=== PATIENT | male | born 2000 | race Caucasian/White ===

== ENCOUNTER 2023-12-14 18:44 | Emergency (ER) | payer BC, SELFPAY ==
[2023-12-14 18:53] VITALS: BP 134/74
[2023-12-14 20:29] VITALS: BP 116/81
[2023-12-14 21:00] VITALS: BP 125/73
--- NOTE | 2023-12-14 21:04 | EDRN ---
Pt has had constant pressure in the center of his chest since associated with sob. No recent long car rides/airplane travel, abd pain, swelling, leg pain, n/v, dizziness, weakness. Pt was seen at [facility] for same complaint and discharged
with nonspecific chest pain diagnosis. Pt says he was not told to take motrin/tylenol. Pt came in tonight because pressure has not gone away and he would like a second opinion. Pt has not taken anything at home for pain.
[2023-12-14 21:07] LABS: % Basophils 0.6 % (0-2); % Eosinophils 2.1 % (0-6); % Immature Granulocytes 0.2 % (0-0.5); % Lymphocytes 38.5 % (20.5-51.1); % Monocytes 7.8 % (1.7-9.3); % Neutrophils 50.8 % (42.2-75.2); Absolute Eosinophils 0.1 10^3/uL (0-0.7); Absolute Monocytes 0.4 10^3/uL (0.1-0.6); Absolute Neutrophils 2.7 10^3/uL (1.4-6.5); Hematocrit 39.7 % (39.0-52.0); Mean Corp Hgb Conc. 35.3 g/dL (33.0-37.0); Mean Corpuscular Hgb 30.1 pg (27.0-31.0); Mean Corpuscular Volume 85.4 fL (80.0-94.0); Mean Platelet Volume 9.4 fL (7.4-10.4); Nucleated Red Blood Cells % 0 % (-); Platelet Count 234 10^3/uL (130-400); Red Blood Cell Count 4.65 10^6/uL (4.70-6.10); Red Cell Dist. Width 13.2 % (11.5-14.5); White Blood Cell Count 5.3 10^3/uL (4.8-10.8)
[2023-12-14 21:22] LABS: ALT (SGPT) 27 U/L (0-50); AST (SGOT) 23 U/L (17-59); Alkaline Phosphatase 36 U/L (38-126); Blood Urea Nitrogen 25 mg/dl (9-20); Calcium 9.9 mg/dl (8.4-10.2); Carbon Dioxide 27 mmol/L (22-30); Chloride 102 mmol/L (98-107); Estimated Creatinine Clearance 113 ml/min; Glucose 93 mg/dl (70-99); Potassium 4.6 mmol/L (3.5-5.1); Sodium 142 mmol/L (135-145); Total Bilirubin 0.3 mg/dl (0.2-1.3); Total Protein 7.6 g/dl (6.3-8.2); eGFR > 60.00
--- NOTE | 2023-12-14 21:27 | ED.GENMED ---
History of Present Illness
General
Chief Complaint: Chest Pain
Source: patient
Time Seen by Provider: 12/14/23 20:27
History of Present Illness
History of Present Illness:
23-year-old male with no significant past medical history presents to the emergency department for evaluation of chest discomfort that started this past rather abruptly while he was driving, felt as if his heart were racing and as if it
were skipping beats. Patient went to [facility] and he reports that he had labs, chest x-ray and an EKG performed and was ultimately discharged home. Patient states that he did not understand some of the workup and was still
having some of the discomfort today so decided to come to the ER here for second opinion and further evaluation. Patient denies any fevers, recent illnesses, cough, exertional dyspnea, orthopnea, abdominal pain, nausea, vomiting. Family history
was noncontributory. Social history was noted for no cigarettes or tobacco/alcohol use/substance abuse. Patient does note he feels the pain more along the right side and is a little bit worse with deep inspiration.
Past History
Past History
ED Past Medical History: None
ED Past Surgical History: None
Social History
Tobacco: Non-smoker
Alcohol: None
Drug: None
Personal:
Living: with family
Employment: Employed
Review of Systems
Review of Systems
All Other Systems: ROS reviewed and negative except as documented in HPI and ROS
Phy Exam
Physical Exam
Physical Exam:
GENERAL: Alert , in no apparent distress
EYE: clear conjunctiva b/l
HEAD: NCAT
ENT: mmm.
CARDIAC: Regular rate and rhythm .
LUNGS: Clear breath sounds bilaterally, no acute respiratory distress, no wheezes/rales/rhonchi
ABDOMEN: Soft, without focal tenderness, no r/g, no cvat
NEUROLOGICAL: Alert and oriented
SKIN: Warm and dry, skin intact.
MUSCULOSKELETAL: No edema, well perfused.
PSYCH: Normal and appropriate interaction.
Scores
Heart Failure Risk
Heart Failure Risk Score: Not Applicable
Heart Score for Chest Pain Patients
STEMI patient?: No
History: Slightly or Non-Suspicious
ECG: Normal
Age: </= 45 years
Risk Factors: No Risk Factors
Troponin: </= Normal Limit
Heart Score for Chest Pain Patients: 0
Heart Score Risk: 2.5% MACE over next 6 weeks
Withdrawal Assessment of Alcohol
Withdrawal Assessment Completed?: Not applicable
Course
Orders/Labs/Results
Orders:
Orders
12/14/23 18:45
EKG [Electrocardiogram (*1)] Urgent
Reason for Study: Chest Pain
EKG- Treatment ONCE
12/14/23 20:55
Complete Blood Count/With Diff Urgent
Comprehensive Metabolic Panel Urgent
Troponin I Urgent
Abnormal Lab Results
12/14/23
20:55
RBC 4.65 L 10^6/uL
(4.70-6.10)
BUN 25 H mg/dl
(9-20)
Alkaline Phosphatase 36 L U/L
(38-126)
12/14/23 20:55
12/14/23 20:55
Vital Signs
Initial and Last Documented VS:
Initial Vital Signs
Temp Pulse Resp BP Pulse Ox
98.5 F 64 18 134/74 99
12/14/23 18:53 12/14/23 18:53 12/14/23 18:53 12/14/23 18:53 12/14/23 18:53
Last Documented Vital Signs
Temp Pulse Resp BP Pulse Ox
98.5 F 55 14 125/73 100
12/14/23 18:53 12/14/23 21:00 12/14/23 21:00 12/14/23 21:00 12/14/23 21:00
MDM/Problems Addressed
Differential Diagnosis Includes:
pleurisy, costochondritis, PE, ACS thought to be much less likely given age and lack of risk factors
MDM/Problems Addressed:
23-year-old male presenting to the emergency department for evaluation of right-sided chest pain that began on , had workup done at [facility] which was reportedly unremarkable however patient does have his paperwork and blood work with him
which show that on an initial troponin this was mildly elevated, had subsequent to sets of troponins done which were both normal. Patient's EKG there was also nonischemic and had negative imaging and a negative D-dimer. Based off patient's
symptoms I suspect pleurisy/costochondritis to be the most likely diagnosis. Will repeat labs to ensure negative troponin. Will provide with information for cardiology for patient to follow-up at his choosing. Anticipate discharge home following
remaining workup.
*Pulse Oximetry
Patient hypoxic: no
*EKG
Interpreted by ED Provider?: Yes
Heart Rate: 57
Rate: bradycardiac
Rhythm: sinus
[place]: normal axis
Ischemia: no ischemia
*Ball Fringe Machine Operator Interpretation
Rate: bradycardiac
Rhythm: sinus
*Critical Care Note
Total Time (30-74mins, 75-104mins- exclusive of procedures): Not Applicable
Patient Management
Social determinants of health affecting care: Living situation and Strong social support
Escalation/DeEscalation of care consider admission/obs:
Labs unremarkable. Patient feels comfortable being discharged home. Aware of return precautions. Information for cardiology was provided.
ED Attending Note
-
Portions of this chart may have been created with voice recognition software.� Occasional wrong word or��sound alike� substitutions may have occurred due to the inherent limitations of voice recognition software.
Discharge Plan
Departure
Patient Disposition: Home (Routine Discharge)
Date of Disposition: 12/14/23
Time of Disposition: 21:33
Patient with high blood pressure during this ER visit?: No
Discharge Problem:
Chest pain
Instructions: Chest Pain That Is Not Caused by the Heart (DC)
Prescriptions:
No Action
No Current Medications
0
Referrals:
Luc Flores DO [Family Provider] -
Willie Ahumada MD [Active] -
(Cardiology - Call for appointment as needed
)
Interventions
Interventions:
*Risk Screen - Suicide Last Done: 12/14/23 18:53
*General Assessment Last Done: 12/14/23 18:53
*Neglect/Abuse Screening Last Done: 12/14/23 18:53
ED- Fall Risk Assessment Last Done: 12/14/23 21:02
*ED COVID-19 Vaccine History Last Done: 12/14/23 18:53
ED- Cardiac Assessment Last Done: 12/14/23 21:02
Discharge Date and Time
Print Language: TAJIK
[2023-12-14 21:32] LABS: Troponin I < 0.012 ng/ml
== END 2023-12-14 21:45 | disposition home or self-care (01) ==
LOC: EMR 18:44
PROVIDERS: Physician Assistant Medical; EMERGENCY PHYSICIAN Student in an Organized Health Care Education/Training Program; FAMILY PHYSICIAN Family Medicine Sports Medicine
DX: R07.89 Other chest pain (principal)
CPT/HCPCS: 99283; 80053; 84484; 85025; 93005

== ENCOUNTER → 2023-12-29 09:54 | Outpatient (REF) | payer BC, SELFPAY | LOC: RCS 09:54 | PROVIDERS: ATTENDING PHYSICIAN Family Medicine Sports Medicine | DX: R06.02 Shortness of breath (principal); R07.9 Chest pain, unspecified | CPT/HCPCS: 93306 ==

== ENCOUNTER 2024-01-01 12:50 | Emergency (ER) | payer BC, SELFPAY ==
[2024-01-01 12:52] VITALS: BP 136/85
[2024-01-01 13:08] LABS: % Basophils 0.7 % (0-2); % Eosinophils 0.7 % (0-6); % Immature Granulocytes 0.2 % (0-0.5); % Lymphocytes 25.3 % (20.5-51.1); % Monocytes 6.4 % (1.7-9.3); % Neutrophils 66.7 % (42.2-75.2); Absolute Monocytes 0.3 10^3/uL (0.1-0.6); Absolute Neutrophils 2.7 10^3/uL (1.4-6.5); Hematocrit 41.4 % (39.0-52.0); Hemoglobin 14.5 g/dL (13.0-18.0); Mean Corpuscular Hgb 31.3 pg (27.0-31.0); Mean Corpuscular Volume 89.4 fL (80.0-94.0); Mean Platelet Volume 9.5 fL (7.4-10.4); Nucleated Red Blood Cells % 0 % (-); Platelet Count 211 10^3/uL (130-400); Red Blood Cell Count 4.63 10^6/uL (4.70-6.10); Red Cell Dist. Width 12.9 % (11.5-14.5); White Blood Cell Count 4.1 10^3/uL (4.8-10.8)
[2024-01-01 13:31] LABS: NT-proBNP 21.1 pg/ml; Troponin I < 0.012 ng/ml
[2024-01-01 13:52] LABS: ALT (SGPT) 25 U/L (0-50); AST (SGOT) 23 U/L (17-59); Alkaline Phosphatase 38 U/L (38-126); Blood Urea Nitrogen 22 mg/dl (9-20); Calcium 9.9 mg/dl (8.4-10.2); Carbon Dioxide 28 mmol/L (22-30); Chloride 102 mmol/L (98-107); Glucose 119 mg/dl (70-99); Potassium 4.3 mmol/L (3.5-5.1); Sodium 141 mmol/L (135-145); Total Bilirubin 0.6 mg/dl (0.2-1.3); Total Protein 7.5 g/dl (6.3-8.2); eGFR > 60.00
--- NOTE | 2024-01-01 15:09 | ED.GENMED ---
History of Present Illness
<Delma Doe PA-C - Last Filed: 01/01/24 17:25>
General
Chief Complaint: Chest Pain
Source: patient
Exam Limitations: none
Time Seen by Provider: 01/01/24 14:27
Nursing documentation reviewed up to this point in time: agreed with
History of Present Illness
History of Present Illness:
Patient is a 23-year-old healthy male presenting to the emergency department for evaluation of chest pain. Patient states that he has had a constant pressure in his mid chest for the past 3 weeks. He also reports intermittent episodes where he has
acute onset shortness of breath, lightheadedness, and feels that is is going to pass out. The symptoms last about 30 minutes and have happened twice while he was riding in a car. Patient denies any syncopal episodes.
Patient denies any exertional or pleuritic component to symptoms. He actually walked on the treadmill for 2 miles today without any worsening in symptoms. Patient denies any lower leg pain or swelling. Patient denies any recent travel or recent
surgery. No exogenous hormone use. No personal or family history of blood clots or clotting disorders.
Patient has been seen to emergency departments over the past 3 weeks for same symptoms. He also had a outpatient cardiac echocardiogram performed which was 'normal'. Patient was told that symptoms may be due to anxiety or GERD however patient is
worried that something more serious is ongoing.
Past History
<Delma Doe PA-C - Last Filed: 01/01/24 17:25>
Past History
ED Past Medical History: None
ED Past Surgical History: None
Social History
Tobacco: Non-smoker
Alcohol: None
Drug: None
Personal:
Living: with family
Employment: Employed
Review of Systems
<Delma Doe PA-C - Last Filed: 01/01/24 17:25>
Review of Systems
Allergies reviewed?: Yes
All Other Systems: ROS reviewed and negative except as documented in HPI and ROS
Phy Exam
<Delma Doe PA-C - Last Filed: 01/01/24 17:25>
Physical Exam
Physical Exam:
Vitals: Patient's vital signs are stable. Afebrile
General: Patient is well appearing, no acute distress. Nontoxic-appearing
Skin: Warm and dry, no rashes or lesions
Head: Normocephalic, atraumatic
Eyes: Sclera nonicteric. EOMs intact. No nystagmus.
Throat: Protecting airway
Neck: Normal ROM, no cervical spine tenderness, no meningismus. Trachea midline
Cardiac: Regular rate and rhythm, no murmurs. Anterior chest wall nontender to palpation
Pulm: Normal respiratory effort, no wheezes, rales, rhonchi heard on exam.
Abdomen: Abdomen soft. No abdominal tenderness.
Extremities: No evidence of cyanosis or edema. Palpable DP pulses bilaterally. Strength out of 5 in upper and lower extremities. Sensation fully intact.
Neuro: AAOx3. CN II-XII intact. No focal neurologic deficits.
Psychiatric: Normal affect.
Scores
<Delma Doe PA-C - Last Filed: 01/01/24 17:25>
Heart Score for Chest Pain Patients
STEMI patient?: No
History: Slightly or Non-Suspicious
ECG: Normal
Age: </= 45 years
Risk Factors: No Risk Factors
Troponin: </= Normal Limit
Heart Score for Chest Pain Patients: 0
Heart Score Risk: 2.5% MACE over next 6 weeks
Course
<Delma Doe PA-C - Last Filed: 01/01/24 17:25>
Orders/Labs/Results
Orders:
Orders
01/01/24 12:51
Electrocardiogram (*1) Urgent
Reason for Study: Chest Pain
EKG- Treatment ONCE
01/01/24 12:54
CXR2 [CR Chest - 2 Views ] Urgent
Comment:
Reason For Exam: sob
01/01/24 13:02
Complete Blood Count/With Diff Urgent
Comprehensive Metabolic Panel Urgent
NT-proBNP Urgent
Troponin I Urgent
01/01/24 14:56
0.9% Sodium Chloride 500 ml [Nss] 500 ml IV BOLUS
01/01/24 14:57
CT Chest Pe Study Urgent
Comment:
Reason For Exam: chest pain, shortness of breath
Abnormal Lab Results
01/01/24
13:02
WBC 4.1 L 10^3/uL
(4.8-10.8)
RBC 4.63 L 10^6/uL
(4.70-6.10)
MCH 31.3 H pg
(27.0-31.0)
Absolute Lymphs (auto) 1.0 L 10^3/uL
(1.2-3.4)
BUN 22 H mg/dl
(9-20)
Glucose 119 H mg/dl
(70-99)
01/01/24 13:02
01/01/24 13:02
Vital Signs
Initial and Last Documented VS:
Initial Vital Signs
Temp Pulse Resp BP Pulse Ox
98.5 F 64 18 136/85 99
01/01/24 12:52 01/01/24 12:52 01/01/24 12:52 01/01/24 12:52 01/01/24 12:52
Last Documented Vital Signs
Temp Pulse Resp BP Pulse Ox
98.5 F 63 16 125/65 99
01/01/24 12:52 01/01/24 16:00 01/01/24 16:05 01/01/24 16:00 01/01/24 12:52
<Lis Davala, DO - Last Filed: 01/01/24 16:59>
Orders/Labs/Results
Orders:
Orders
01/01/24 12:51
Electrocardiogram (*1) Urgent
Reason for Study: Chest Pain
EKG- Treatment ONCE
01/01/24 12:54
CXR2 [CR Chest - 2 Views ] Urgent
Comment:
Reason For Exam: sob
01/01/24 13:02
Complete Blood Count/With Diff Urgent
Comprehensive Metabolic Panel Urgent
NT-proBNP Urgent
Troponin I Urgent
01/01/24 14:56
0.9% Sodium Chloride 500 ml [Nss] 500 ml IV BOLUS
01/01/24 14:57
CT Chest Pe Study Urgent
Comment:
Reason For Exam: chest pain, shortness of breath
Abnormal Lab Results
01/01/24
13:02
WBC 4.1 L 10^3/uL
(4.8-10.8)
RBC 4.63 L 10^6/uL
(4.70-6.10)
MCH 31.3 H pg
(27.0-31.0)
Absolute Lymphs (auto) 1.0 L 10^3/uL
(1.2-3.4)
BUN 22 H mg/dl
(9-20)
Glucose 119 H mg/dl
(70-99)
01/01/24 13:02
01/01/24 13:02
Vital Signs
Initial and Last Documented VS:
Initial Vital Signs
Temp Pulse Resp BP Pulse Ox
98.5 F 64 18 136/85 99
01/01/24 12:52 01/01/24 12:52 01/01/24 12:52 01/01/24 12:52 01/01/24 12:52
Last Documented Vital Signs
Temp Pulse Resp BP Pulse Ox
98.5 F 63 16 125/65 99
01/01/24 12:52 01/01/24 16:00 01/01/24 16:05 01/01/24 16:00 01/01/24 12:52
<Delma Doe PA-C - Last Filed: 01/01/24 17:25>
MDM/Problems Addressed
Differential Diagnosis Includes:
Not limited to: Costochondritis, pleurisy, pneumonia, PE, pericarditis, pericardial effusion, doubt ACS
MDM/Problems Addressed:
23-year-old male presenting with constant chest pressure over the past 3. There have been a few brief episodes of shortness of breath, lightheadedness. Patient has been seen in 2 emergency departments over the past 3 weeks with negative blood
work, troponin, D-dimer, EKG. He has been seen by cardiology for echo that was reportedly normal. No exertional or pleuritic component to symptoms. Vitals are stable. Physical exam as above. Patient very well-appearing, in no apparent distress.
No evidence of DVT.
EKG obtained in triage shows normal sinus rhythm without any ischemic changes. Labs were initiated in triage with no clinically significant abnormalities. Initial troponin was negative. Given symptoms have been ongoing and constant for the past 3
weeks�feel this is sufficient to rule out acute ID. Patient is afebrile without report of cough�low suspicion for infectious process. Chest x-ray obtained without any abnormalities noted. There is no exertional or pleuritic component to pain.
Very low suspicion for ACS. Patient is PERC negative. Although given duration of symptoms�will obtain CTA chest to rule out pulmonary embolism/other acute cardio/pulmonary around. Anticipate discharge with primary/cardiology follow-up if CTA
chest negative. Patient declines any Toradol at this time
Chronic conditions affecting care:
N/A
Acute Exacerbation and/or Progression of Chronic Illness:
N/A
<Delma Doe PA-C - Last Filed: 01/01/24 17:25>
*Radiology
Radiology exam reviewed: preliminary read by ED provider and radiology read reviewed (No evidence of PE other acute abnormalities of the chest)
*Pulse Oximetry
Patient hypoxic: no
*EKG
Interpreted by ED Provider?: Yes
EKG Intrepretation Date: 01/01/24
Interpretation: normal
Comparison EKG: no changes
Heart Rate: 52
Rate: bradycardiac
Rhythm: sinus
[place]: normal axis
Interval: normal interval
QRS Pattern: normal QRS
Ischemia: no ischemia
*Dredge Or Barge Shore Hand Interpretation
Rate: normal
Interpretation: normal
Heart Rate: 64
Rhythm: sinus
*Critical Care Note
Total Time (30-74mins, 75-104mins- exclusive of procedures): Not Applicable
Data Reviewed
Review of Other/Old Records Reveals: Testing (Echocardiogram from 12/29/2023-no abnormalities, EF 58%)
<Delma Doe PA-C - Last Filed: 01/01/24 17:25>
Update Note
Update Note:
Update 5:15 PM: CTA chest negative for any pulmonary embolism or other acute abnormalities. Very low suspicion for serious cardiac etiology. Feel patient is stable for discharge with cardiology/primary care follow-up. Return precautions
discussed. Patient comfortable plan.
ED Attending Note
<Delma Doe PA-C - Last Filed: 01/01/24 17:25>
-
Portions of this chart may have been created with voice recognition software.� Occasional wrong word or��sound alike� substitutions may have occurred due to the inherent limitations of voice recognition software.
<Lis Garcia DO - Last Filed: 01/01/24 16:59>
ED Attending Note
Patient seen and examined by attending physician: Yes
I performed the substantive portion of visit, reviewed & personally made and approve the management plan that is documented in note by myself or SHERRILL.: Yes
I performed a history and physical exam of patient and discussed management with resident, I reviewed resident's note and agree with documented findings and plan of care.: Yes
ED Attending Note:
23-year-old male without significant past medical history presenting for constant chest pain for the past 3 weeks. Patient does note intermittent shortness of breath and lightheadedness with the symptoms. Denies known cardiac issues. This is
patient's third ER visit for the same complaint, previously negative cardiac workup, had an unremarkable echo. Denies injury or trauma to the chest. Vital signs normal.
On exam patient is well-appearing, no acute distress or discomfort. Unremarkable cardiac and pulmonary exam. EKG reviewed, nonischemic. Lower suspicion for ACS. Patient PERC negative without concern for PE. Plan for repeat laboratory analysis
and given persistence of symptoms and repeat ER visit, will obtain CT chest to ensure no additional acute pathology. Overall suspect an anxiety component with likely plan for continued outpatient follow-up
-
Portions of this chart may have been created with voice recognition software.� Occasional wrong word or��sound alike� substitutions may have occurred due to the inherent limitations of voice recognition software.
Discharge Plan
Departure
Patient Disposition: Home (Routine Discharge)
Date of Disposition: 01/01/24
Time of Disposition: 17:17
Patient with high blood pressure during this ER visit?: No
Condition: Good
Covid-19: Not Applicable
Discharge Problem:
Chest pain
Instructions: Chest Pain
Prescriptions:
No Action
No Current Medications
0
Activity Restrictions/Additional Instructions:
RETURN TO THE EMERGENCY DEPARTMENT WITH FEVERS, PERSISTENT/WORSENING CHEST PAIN OR CHEST PAIN WORSE WITH EXERTION, SHORTNESS OF BREATH, SEVERE BACK PAIN, WORSENING IN CURRENT SYMPTOMS, OR ANY OTHER CONCERNS
-As discussed�your imaging studies performed in the emergency department show no evidence of a blood clot in the lung or other acute abnormalities.
-You can try taking Motrin and/or Tylenol for any discomfort in your chest.
-You should follow-up with cardiology for further evaluation/management symptoms persist.
Monitor your symptoms closely and return to the emergency department with any acute worsening/new symptoms or any other concern
Interventions
Interventions:
*Risk Screen - Suicide Last Done: 01/01/24 12:52
*General Assessment Last Done: 01/01/24 12:52
*Neglect/Abuse Screening Last Done: 01/01/24 12:52
*ED COVID-19 Vaccine History Last Done: 01/01/24 12:52
ED- Cardiac Assessment Last Done: 01/01/24 14:34
Discharge Date and Time
Print Language: CYPRIOT
[2024-01-01] MEDS: NSS 500 IV (15:51)
[2024-01-01 16:00] VITALS: BP 125/65
[2024-01-01 17:23] VITALS: BP 128/77
== END 2024-01-01 17:35 | disposition home or self-care (01) ==
LOC: EMR 12:50
PROVIDERS: EMERGENCY PHYSICIAN Student in an Organized Health Care Education/Training Program; FAMILY PHYSICIAN Family Medicine Sports Medicine
DX: R07.89 Other chest pain (principal); R42 Dizziness and giddiness
CPT/HCPCS: 96360; 99285; 71046; 71275; 80053; 83880; 84484; 85025; 93005; Q9967

== ENCOUNTER 2024-01-21 04:05 | Emergency (ER) | payer BC, SELFPAY ==
[2024-01-21 04:13] VITALS: BP 130/78
[2024-01-21 04:54] VITALS: BMI 27.4
[2024-01-21 05:09] VITALS: BP 124/74
[2024-01-21] MEDS: NSS 1000 IV (05:09)
[2024-01-21 05:16] LABS: % Basophils 0.6 % (0-2); % Eosinophils 1.1 % (0-6); % Immature Granulocytes 0.2 % (0-0.5); % Monocytes 6.7 % (1.7-9.3); % Neutrophils 65.4 % (42.2-75.2); Absolute Eosinophils 0.1 10^3/uL (0-0.7); Absolute Lymphocytes 1.4 10^3/uL (1.2-3.4); Absolute Monocytes 0.4 10^3/uL (0.1-0.6); Absolute Neutrophils 3.4 10^3/uL (1.4-6.5); Hematocrit 41.6 % (39.0-52.0); Mean Corp Hgb Conc. 33.7 g/dL (33.0-37.0); Mean Corpuscular Hgb 30.4 pg (27.0-31.0); Mean Corpuscular Volume 90.4 fL (80.0-94.0); Mean Platelet Volume 9.6 fL (7.4-10.4); Nucleated Red Blood Cells % 0 % (-); Platelet Count 219 10^3/uL (130-400); Red Cell Dist. Width 12.7 % (11.5-14.5); White Blood Cell Count 5.2 10^3/uL (4.8-10.8)
[2024-01-21 05:26] LABS: APTT 29.2 Sec (23.4-35.0); INR 0.94; PT 12.9 Sec (11.4-14.6)
[2024-01-21 05:37] LABS: Troponin I < 0.012 ng/ml
[2024-01-21 05:48] LABS: ALT (SGPT) 24 U/L (0-50); AST (SGOT) 24 U/L (17-59); Albumin 4.7 g/dl (3.5-5.0); Alkaline Phosphatase 36 U/L (38-126); Blood Urea Nitrogen 23 mg/dl (9-20); Calcium 9.5 mg/dl (8.4-10.2); Carbon Dioxide 27 mmol/L (22-30); Chloride 103 mmol/L (98-107); Estimated Creatinine Clearance 120 ml/min; Glucose 108 mg/dl (70-99); Magnesium 2.1 mg/dl (1.6-2.3); Potassium 3.9 mmol/L (3.5-5.1); Sodium 143 mmol/L (135-145); Total Bilirubin 0.3 mg/dl (0.2-1.3); Total Protein 7.1 g/dl (6.3-8.2); eGFR > 60.00
[2024-01-21 06:00] VITALS: BP 123/61
[2024-01-21 06:18] LABS: TSH 3.67 uIU/ml (0.47-4.68)
--- NOTE | 2024-01-21 06:25 | ED.GENMED ---
History of Present Illness
General
Chief Complaint: Heart Rate Problem
Time Seen by Provider: 01/21/24 06:04
History of Present Illness
History of Present Illness:
Patient is a 23-year-old male with no past medical history presenting to the emergency department palpitations. Per chart review it appears that patient has been to the emergency department a few times for the same. He has had an echo on December
11 does not give abnormalities. Patient states for the past few months he has been having episodes of palpitations and a heavy heartbeat. He states that this morning around 2 AM he felt as if his heart was skipping a beat. He did have some
associated chest tightness and shortness of breath. He does state that this has been constant but worsened around 2 AM. He does state that he was feeling lousy earlier and was having some episodes of lightheadedness and nausea. No recent travel,
history of cancer or prior blood clots. No leg swelling or hemoptysis. No trauma. He does state that he saw cardiology 2 weeks ago where he had the echocardiogram and also had a CT PE study a few weeks ago which was negative. He states that he
occasionally drinks soda but otherwise denies caffeine use. No drugs. No family
Past History
Past History
ED Past Medical History: None
ED Past Surgical History: None
Social History
Tobacco: Non-smoker
Alcohol: None
Drug: None
Personal:
Living: with family
Employment: Employed
Phy Exam
Physical Exam
Physical Exam:
GENERAL: in no acute distress
HEENT: normocephalic, extraocular movements intact, moist oral mucosa
NECK: normal inspection
RESPIRATORY: no respiratory distress, clear to auscultation bilaterally
CARDIOVASCULAR: regular rate and rhythm
ABDOMEN/: soft, non-distended, non-tender to palpation, no rebound or guarding
EXTREMITIES: non-tender, no edema/swelling
NEUROLOGIC: awake and alert, moves all extremities
SKIN: warm
Course
Orders/Labs/Results
Orders:
Orders
01/21/24 04:06
ECG [Electrocardiogram (*1)] Urgent
Reason for Study: Palpitations
01/21/24 04:07
EKG- Treatment ONCE
01/21/24 04:22
0.9% Sodium Chloride 1000 ml [Nss] 1,000 ml IV BOLUS
01/21/24 05:00
Complete Blood Count/With Diff Urgent
Comprehensive Metabolic Panel Urgent
Magnesium Urgent
PTT Urgent
Prothrombin Time Urgent
TSH Urgent
Troponin I Urgent
Abnormal Lab Results
01/21/24
05:00
RBC 4.60 L 10^6/uL
(4.70-6.10)
BUN 23 H mg/dl
(9-20)
Glucose 108 H mg/dl
(70-99)
Alkaline Phosphatase 36 L U/L
(38-126)
01/21/24 05:00
01/21/24 05:00
Vital Signs
Initial and Last Documented VS:
Initial Vital Signs
Temp Pulse Resp BP Pulse Ox
98 F 74 18 130/78 100
01/21/24 04:13 01/21/24 04:13 01/21/24 04:13 01/21/24 04:13 01/21/24 04:13
Last Documented Vital Signs
Temp Pulse Resp BP Pulse Ox
98 F 68 11 123/61 99
01/21/24 04:13 01/21/24 06:00 01/21/24 06:00 01/21/24 06:00 01/21/24 06:00
MDM/Problems Addressed
Differential Diagnosis Includes:
Patient is a 23-year-old man presenting to the emergency department palpitations. Vitals here are notable for normal heart rate. During my evaluation patient's heart rate on the monitor was normal sinus rhythm in the 60s to 70s. Differential
diagnosis consists of PVCs versus arrhythmia. History and exam less likely to be ACS. He is PERC negative. Blood work obtained prior to elevation is unremarkable. He does have a normal magnesium as well as potassium. EKG per my interpretation
normal sinus rhythm with an occasional PVC. Patient will follow-up with his transit bus driver/PCP.
*Critical Care Note
Total Time (30-74mins, 75-104mins- exclusive of procedures): Not Applicable
ED Attending Note
-
Portions of this chart may have been created with voice recognition software.� Occasional wrong word or��sound alike� substitutions may have occurred due to the inherent limitations of voice recognition software.
Discharge Plan
Departure
Patient Disposition: Home (Routine Discharge)
Date of Disposition: 01/21/24
Time of Disposition: 06:25
Patient with high blood pressure during this ER visit?: No
Discharge Problem:
Palpitations
Instructions: Palpitations (DC)
Prescriptions:
No Action
No Current Medications
0
Referrals:
Luc Flores DO [Family Provider] -
Interventions
Interventions:
*Risk Screen - Suicide Last Done: 01/21/24 04:13
*General Assessment Last Done: 01/21/24 04:54
*Neglect/Abuse Screening Last Done: 01/21/24 04:13
ED- Fall Risk Assessment Last Done: 01/21/24 05:10
*Nursing Disposition Last Done: 01/21/24 06:30
ED- Pulmonary Assessment Last Done: 01/21/24 05:10
ED- Cardiac Assessment Last Done: 01/21/24 05:10
Discharge Date and Time
Print Language: MONGOLIAN
== END 2024-01-21 06:47 | disposition home or self-care (01) ==
LOC: EMR 04:05
PROVIDERS: Student in an Organized Health Care Education/Training Program; EMERGENCY PHYSICIAN Student in an Organized Health Care Education/Training Program; FAMILY PHYSICIAN Family Medicine Sports Medicine
DX: R00.2 Palpitations (principal); R07.89 Other chest pain
CPT/HCPCS: 99284; 96360; 80053; 83735; 84443; 84484; 85025; 85610; 85730; 93005

== ENCOUNTER 2024-03-16 22:59 | Emergency (ER) | payer BC, SELFPAY ==
[2024-03-16 23:14] VITALS: BP 132/76
[2024-03-16 23:39] LABS: % Basophils 0.8 % (0-2); % Eosinophils 1.9 % (0-6); % Immature Granulocytes 0.2 % (0-0.5); % Lymphocytes 38.2 % (20.5-51.1); % Monocytes 6.6 % (1.7-9.3); % Neutrophils 52.3 % (42.2-75.2); Absolute Eosinophils 0.1 10^3/uL (0-0.7); Absolute Lymphocytes 1.8 10^3/uL (1.2-3.4); Absolute Monocytes 0.3 10^3/uL (0.1-0.6); Absolute Neutrophils 2.5 10^3/uL (1.4-6.5); Mean Corp Hgb Conc. 34.2 g/dL (33.0-37.0); Mean Corpuscular Hgb 30.5 pg (27.0-31.0); Mean Corpuscular Volume 89.2 fL (80.0-94.0); Mean Platelet Volume 9.6 fL (7.4-10.4); Nucleated Red Blood Cells % 0 % (-); Platelet Count 216 10^3/uL (130-400); Red Blood Cell Count 4.26 10^6/uL (4.70-6.10); Red Cell Dist. Width 12.7 % (11.5-14.5); White Blood Cell Count 4.7 10^3/uL (4.8-10.8)
[2024-03-16 23:47] LABS: ALT (SGPT) 27 U/L (0-50); AST (SGOT) 27 U/L (17-59); Albumin 4.6 g/dl (3.5-5.0); Alkaline Phosphatase 39 U/L (38-126); Blood Urea Nitrogen 21 mg/dl (9-20); Calcium 9.1 mg/dl (8.4-10.2); Carbon Dioxide 29 mmol/L (22-30); Chloride 100 mmol/L (98-107); Glucose 107 mg/dl (70-99); Potassium 3.8 mmol/L (3.5-5.1); Sodium 137 mmol/L (135-145); Total Bilirubin 0.4 mg/dl (0.2-1.3); Total Protein 6.9 g/dl (6.3-8.2); eGFR > 60.00
[2024-03-17 00:28] VITALS: BMI 25.5
--- NOTE | 2024-03-17 00:35 | ED.GENMED ---
History of Present Illness
<ALICIA Mark - Last Filed: 03/17/24 02:36>
General
Chief Complaint: Musculo-Skeletal Complaint
Source: patient
Exam Limitations: none
Time Seen by Provider: 03/17/24 00:25
History of Present Illness
History of Present Illness:
This is a 23 year old male that comes in with multiple complaints. States that he has been getting chest pain for the past 3 months. States that tonight he started with spasm in his legs and then chest pain. States that this seemed to be more
intense then before. States that he felt SOB, and had to use the BR. After he went to the BR he started with shaking. States that his chest pain is in the middle of his chest and slightly to the right. Denies any fever, abd pain, nausea, vomiting,
diarrhea, headache, dizziness, urinary burning.
Past History
<ALICIA Mark - Last Filed: 03/17/24 02:36>
Past History
ED Past Medical History: Arrthythmia (PVC's, ) and GERD
ED Past Surgical History: None
Social History
Tobacco: Non-smoker
Alcohol: None
Drug: None
Personal:
Living: with family
Employment: Employed
Review of Systems
<ALICIA Mark - Last Filed: 03/17/24 02:36>
Review of Systems
All Other Systems: ROS reviewed and negative except as documented in HPI and ROS
Constitutional: Reports chills; Denies fever
EENT: Reports no symptoms
Respiratory: Reports trouble breathing; Denies cough
Cardiac: Reports chest pain
ABD/GI: Reports no symptoms; Denies abdominal pain, nausea, vomiting or diarrhea
: Reports no symptoms; Denies dysuria, frequency or urgency
Musculoskeletal: Reports no symptoms
Neurological: Reports no symptoms; Denies dizzy or headache
Psychiatric: Reports no symptoms
Phy Exam
<ALICIA Mark - Last Filed: 03/17/24 02:36>
General Physical Exam
General Presentation: no apparent distress
General age: appears stated age
General Skin: warm and dry
General Habitus: normal
General Mental: alert and anxious
General Hydration: appears well hydrated
ENT Exam
ENT Exam: TM's normal, pharynx normal and neck supple
Eye Exam
Eye Exam: EOMI
Cardiovascular Exam
Cardiovascular Exam: regular rate/rhythm, no edema, no murmur and normal peripheral pulses
Pulmonary Exam
Pulmonary Exam: lungs clear, no respiratory distress, no rales, chest non tender, no crackles, no rhonchi, no wheezing and no cough
Gastrointestinal Exam
Gastrointestinal Exam: normal bowel sounds, non tender, soft, no organomegaly, no pulsatile mass and non distended
Musculoskeletal Exam
Musculoskeletal Exam: full ROM and no edema
Skin Exam
Skin Exam: normal color, warm/dry, no rash and no petechia
Psychiatric Exam
Psychiatric Exam: anxious
Course
<ALICIA Mark - Last Filed: 03/17/24 02:36>
Orders/Labs/Results
Orders:
Orders
03/16/24 23:10
Electrocardiogram (*1) Urgent
Reason for Study: Palpitations
03/16/24 23:11
EKG- Treatment ONCE
03/16/24 23:26
CMP [Comprehensive Metabolic Panel] Urgent
Complete Blood Count/With Diff Urgent
03/17/24 00:34
Pantoprazole [Protonix] 40 mg PO NOW STA
CR Chest - 2 Views Urgent
Comment:
Reason For Exam: Chest pain
03/17/24 01:21
Troponin I Urgent
Abnormal Lab Results
03/16/24
23:26
WBC 4.7 L 10^3/uL
(4.8-10.8)
RBC 4.26 L 10^6/uL
(4.70-6.10)
Hct 38.0 L %
(39.0-52.0)
BUN 21 H mg/dl
(9-20)
Glucose 107 H mg/dl
(70-99)
03/16/24 23:26
03/16/24 23:26
Very slight Dehydration. Glucose nonfasting, Troponin <0.012,
Vital Signs
Initial and Last Documented VS:
Initial Vital Signs
Temp Pulse Resp BP Pulse Ox
98.9 F 64 18 132/76 100
03/16/24 23:14 03/16/24 23:14 03/16/24 23:14 03/16/24 23:14 03/16/24 23:14
Last Documented Vital Signs
Temp Pulse Resp BP Pulse Ox
98.9 F 64 18 132/76 100
03/16/24 23:14 03/16/24 23:14 03/16/24 23:14 03/16/24 23:14 03/16/24 23:14
<Juan Larios, DO - Last Filed: 03/17/24 01:33>
Orders/Labs/Results
Orders:
Orders
03/16/24 23:10
Electrocardiogram (*1) Urgent
Reason for Study: Palpitations
03/16/24 23:11
EKG- Treatment ONCE
03/16/24 23:26
CMP [Comprehensive Metabolic Panel] Urgent
Complete Blood Count/With Diff Urgent
03/17/24 00:34
Pantoprazole [Protonix] 40 mg PO NOW STA
CR Chest - 2 Views Urgent
Comment:
Reason For Exam: Chest pain
03/17/24 01:21
Troponin I Urgent
Abnormal Lab Results
03/16/24
23:26
WBC 4.7 L 10^3/uL
(4.8-10.8)
RBC 4.26 L 10^6/uL
(4.70-6.10)
Hct 38.0 L %
(39.0-52.0)
BUN 21 H mg/dl
(9-20)
Glucose 107 H mg/dl
(70-99)
03/16/24 23:26
03/16/24 23:26
Vital Signs
Initial and Last Documented VS:
Initial Vital Signs
Temp Pulse Resp BP Pulse Ox
98.9 F 64 18 132/76 100
03/16/24 23:14 03/16/24 23:14 03/16/24 23:14 03/16/24 23:14 03/16/24 23:14
Last Documented Vital Signs
Temp Pulse Resp BP Pulse Ox
98.9 F 64 18 132/76 100
03/16/24 23:14 03/16/24 23:14 03/16/24 23:14 03/16/24 23:14 03/16/24 23:14
<ALICIA Mark - Last Filed: 03/17/24 02:36>
MDM/Problems Addressed
Differential Diagnosis Includes:
Panic attack, GERD
MDM/Problems Addressed:
This is a 23 year old male that comes in with c/o chest pain, SOB, legs spasm. States that he has had chest pain on and off for 3 months. States that tonight it seemed more intense. States that he was SOB, and after going to the BR he felt shaky.
Will check labs, Chest X-ray.
Back to see patient. Explained that his ECG, Troponin and chest x-ray are normal. This is most likely a Panic attack. Patient encouraged to follow up with the family doctor and discuss how he is feeling with the PCP. Patient encouraged to decrease
his caffeine as this is a stimulant and will make the Panic attacks worse. Patient to return with any concerns.
Chronic conditions affecting care:
History of Reflux
Acute Exacerbation and/or Progression of Chronic Illness:
History of Reflux
<AILCIA Mark - Last Filed: 03/17/24 02:36>
*Radiology
Radiology exam reviewed: preliminary read by ED provider (Chest- Negative for active disease. )
*Pulse Oximetry
Patient hypoxic: no
*EKG
Interpreted by ED Provider?: Yes
Heart Rate: 51
Rate: bradycardiac
Rhythm: sinus arrhythmia
[place]: right axis deviation
QRS Pattern: normal QRS
Ischemia: no ischemia
*Photovoltaic Testing Technician Interpretation
Rate: Photovoltaic Testing Technician- N/A
*Critical Care Note
Total Time (30-74mins, 75-104mins- exclusive of procedures): Not Applicable
ED Attending Note
<ALICIA Mark - Last Filed: 03/17/24 02:36>
-
Portions of this chart may have been created with voice recognition software.� Occasional wrong word or��sound alike� substitutions may have occurred due to the inherent limitations of voice recognition software.
<Juan Larios DO - Last Filed: 03/17/24 01:33>
ED Attending Note
Patient seen and examined by attending physician: Yes
ED Attending Note:
23-year-old male presents emergency department with muscle spasms and palpitations. Patient states that this has been going on for months with no change. He has been seen by GI and had endoscopy. He has had a Holter monitor with the results just
sent in on Friday. He has been to his family doctor in the past. He does have a history of PVCs and GERD but states that his PVCs seem to be more frequent. Patient denies any other symptoms at this time. Patient was seen in conjunction with the
nurse practitioner. I have reviewed and agree with her history and treatment plan. On my independent physical exam patient is awake, alert, and oriented x 3, minimal acute distress. Heart is regular rate rhythm without any murmurs rubs or gallops
appreciated. Abdomen is soft and nontender. Skin is warm and dry. Patient does have an anxious affect. Plan is lab work and continued monitoring.
Discharge Plan
Departure
Patient Disposition: Home (Routine Discharge)
Date of Disposition: 03/17/24
Time of Disposition: 02:31
Patient with high blood pressure during this ER visit?: Yes
Condition: Good
Covid-19: Not Applicable
Discharge Problem:
Panic attack
Instructions: Panic Attack ED, BLOOD PRESSURE
Prescriptions:
No Action
No Current Medications
0
Referrals:
Luc Flores, [Family Provider] - Follow up in 2-3 days
Activity Restrictions/Additional Instructions:
As discussed, your blood work shows that you are very slightly Dehydration. Please increase your water intake to 8-8oz glasses daily. Please try and decrease your caffeine intake. Your Chest x-ray and ECG are normal. Please follow up with the Family
doctor for recheck. This sounds like a panic attack. IF YOU HAVE ANY OTHER CONCERNS PLEASE RETURN TO THE EMERGENCY ROOM
Interventions
Interventions:
*Risk Screen - Suicide Last Done: 03/16/24 23:08
*General Assessment Last Done: 03/17/24 00:28
*Neglect/Abuse Screening Last Done: 03/16/24 23:08
ED- Fall Risk Assessment Last Done: 03/17/24 00:28
*ED COVID-19 Vaccine History Last Done: 03/17/24 00:28
ED- Cardiac Assessment Last Done: 03/17/24 00:28
ED-Musculoskeletal Assessment Last Done: 03/17/24 00:28
ED- Pulmonary Assessment Last Done: 03/17/24 00:28
Discharge Date and Time
Print Language: [place]
[2024-03-17] MEDS: PROTONIX 40 MG PO (01:15)
[2024-03-17 02:07] LABS: Troponin I < 0.012 ng/ml
== END 2024-03-17 02:43 | disposition home or self-care (01) ==
LOC: EMR 22:59
PROVIDERS: Clinical Nurse Specialist Family Health; EMERGENCY PHYSICIAN Student in an Organized Health Care Education/Training Program; FAMILY PHYSICIAN Family Medicine Sports Medicine
DX: F41.0 Panic disorder [episodic paroxysmal anxiety] (principal); M62.838 Other muscle spasm; R07.9 Chest pain, unspecified; R00.2 Palpitations; R06.02 Shortness of breath; R25.1 Tremor, unspecified; E86.0 Dehydration; R03.0 Elevated blood-pressure reading, without diagnosis of hypertension; K21.9 Gastro-esophageal reflux disease without esophagitis
CPT/HCPCS: 99283; 71046; 80053; 84484; 85025; 93005

== ENCOUNTER 2024-08-16 03:40 | Emergency (ER) | payer BC, SELFPAY ==
[2024-08-16 03:43] VITALS: BP 144/100
[2024-08-16 04:05] VITALS: BP 116/68
[2024-08-16 04:21] LABS: % Basophils 0.6 % (0-2); % Eosinophils 2.5 % (0-6); % Lymphocytes 34.2 % (20.5-51.1); % Monocytes 7.5 % (1.7-9.3); % Neutrophils 55.2 % (42.2-75.2); Absolute Eosinophils 0.1 10^3/uL (0-0.7); Absolute Lymphocytes 1.7 10^3/uL (1.2-3.4); Absolute Monocytes 0.4 10^3/uL (0.1-0.6); Absolute Neutrophils 2.7 10^3/uL (1.4-6.5); Hematocrit 39.7 % (39.0-52.0); Hemoglobin 13.7 g/dL (13.0-18.0); Mean Corp Hgb Conc. 34.5 g/dL (33.0-37.0); Mean Corpuscular Hgb 30.9 pg (27.0-31.0); Mean Corpuscular Volume 89.6 fL (80.0-94.0); Mean Platelet Volume 9.8 fL (7.4-10.4); Nucleated Red Blood Cells % 0 % (-); Platelet Count 204 10^3/uL (130-400); Red Blood Cell Count 4.43 10^6/uL (4.70-6.10); Red Cell Dist. Width 12.4 % (11.5-14.5); White Blood Cell Count 4.8 10^3/uL (4.8-10.8)
[2024-08-16 04:38] LABS: ALT (SGPT) 30 U/L (0-50); AST (SGOT) 36 U/L (17-59); Albumin 4.7 g/dl (3.5-5.0); Alkaline Phosphatase 38 U/L (38-126); Blood Urea Nitrogen 19 mg/dl (9-20); Calcium 9.4 mg/dl (8.4-10.2); Carbon Dioxide 25 mmol/L (22-30); Chloride 106 mmol/L (98-107); Glucose 102 mg/dl (70-99); Potassium 4.2 mmol/L (3.5-5.1); Sodium 139 mmol/L (135-145); Total Bilirubin 0.5 mg/dl (0.2-1.3); Total Protein 7.1 g/dl (6.3-8.2); eGFR > 60.00
[2024-08-16 04:49] LABS: Troponin I < 0.012 ng/ml
[2024-08-16 05:00] VITALS: BP 125/58
[2024-08-16 06:00] VITALS: BP 123/73
--- NOTE | 2024-08-16 06:11 | ED.GENMED ---
History of Present Illness
General
Chief Complaint: Chest Pain
Source: patient
Exam Limitations: none
Time Seen by Provider: 08/16/24 05:36
Nursing documentation reviewed up to this point in time: agreed with
History of Present Illness
History of Present Illness:
24-year-old male with a past medical history as noted presents to the ER for evaluation of chest pain. Patient reports intermittent symptoms for the past few days they seem to come on at night. He describes a heaviness in the chest. He says that
tonight around 2 AM he had onset of symptoms associated with some paresthesias in the arms and legs as well as headache and flashes in his right eye. Came to the ER for assessment. He still has some chest heaviness but rest of his symptoms have
resolved. He has been seen in the ER multiple times for the symptoms and had extensive workup including troponins, CT chest which have all been negative. He has been seen by cardiology and reports that he had echocardiogram and Holter monitor that
were nondiagnostic. He was referred to a GI doctor and had an endoscopy that was nondiagnostic. He denies any family history of heart conditions. Denies smoking, alcohol, drug use. He does not take any medications currently.
Past History
Past History
ED Past Medical History: Arrthythmia (PVC's, ) and GERD
ED Past Surgical History: None
Social History
Tobacco: Non-smoker
Alcohol: None
Drug: None
Personal:
Living: with family
Employment: Employed
Review of Systems
Review of Systems
All Other Systems: ROS reviewed and negative except as documented in HPI and ROS
Constitutional: Denies fever or chills
Respiratory: Denies trouble breathing
Cardiac: Reports chest pain; Denies diaphoresis
ABD/GI: Denies abdominal pain, nausea or vomiting
: Denies flank pain
Musculoskeletal: Denies neck pain or back pain
Neurological: Reports headache and other (Paresthesias); Denies weakness or numbness
Phy Exam
Physical Exam
Physical Exam:
General: Awake, alert, oriented x3; no acute distress
Head: Normocephalic, atraumatic
Eyes: Conjunctiva normal, sclera anicteric
Throat: Airway intact, handling secretions
Neck: Trachea midline, supple without meningismus
Lungs: Clear to auscultation bilaterally, no wheezing, rales, rhonchi
Heart: Regular rate and rhythm, no murmurs, gallops, or rubs
Abd: Soft, non distended, nontender
Neuro: No gross deficits
Skin: no rash
Extremities: No edema in extremities, no calf tenderness, equal pulses in all extremities
Scores
Heart Failure Risk
Heart Failure Risk Score: Not Applicable
Heart Score for Chest Pain Patients
STEMI patient?: No
History: Slightly or Non-Suspicious
ECG: Normal
Age: </= 45 years
Risk Factors: No Risk Factors
Troponin: </= Normal Limit
Heart Score for Chest Pain Patients: 0
Heart Score Risk: 2.5% MACE over next 6 weeks
PERC Rule Criteria
Age <50 years: Yes
HR <100 bpm: Yes
Room air oxygen sat >94%: Yes
History of DVT or PE: No
Recent trauma or surgery: No
Hemoptysis: No
Exogenous estrogen: No
Clinical signs suggestive of DVT: No
: No
Considered low risk for PE: Yes
PERC Score: 0
PE can be excluded by PERC: Yes
Withdrawal Assessment of Alcohol
Withdrawal Assessment Completed?: Not applicable
Course
Orders/Labs/Results
Orders:
Orders
08/16/24 03:42
EKG [Electrocardiogram (*1)] Urgent
Reason for Study: Chest Pain
EKG- Treatment ONCE
08/16/24 04:10
CMP [Comprehensive Metabolic Panel] Urgent
Complete Blood Count/With Diff Urgent
Troponin I Urgent
08/16/24 05:40
CR Chest - 2 Views Urgent
Comment:
Reason For Exam: chest pain
Abnormal Lab Results
08/16/24
04:10
RBC 4.43 L 10^6/uL
(4.70-6.10)
Glucose 102 H mg/dl
(70-99)
08/16/24 04:10
08/16/24 04:10
Vital Signs
Initial and Last Documented VS:
Initial Vital Signs
Temp Pulse Resp BP Pulse Ox
36.4 C 59 16 144/100 99
08/16/24 03:43 08/16/24 03:43 08/16/24 03:43 08/16/24 03:43 08/16/24 03:43
Last Documented Vital Signs
Temp Pulse Resp BP Pulse Ox
36.4 C 59 16 144/100 99
08/16/24 03:43 08/16/24 03:43 08/16/24 03:43 08/16/24 03:43 08/16/24 06:14
MDM/Problems Addressed
Differential Diagnosis Includes:
GERD, anxiety, costochondritis, pericarditis, dysrhythmia; clinically low suspicion for ACS; patient PERC negative low suspicion for PE
MDM/Problems Addressed:
24-year-old male presents for evaluation of atypical chest pressure�has history of multiple visits for similar. Hypertensive otherwise normal vitals. Physical exam as above. His EKG shows sinus bradycardia no changes from prior no acute ischemia.
Lab work sent off including a CBC and a CMP which showed no clinically significant abnormalities. His troponin is undetectable. Very low suspicion for emergent pathology at this point in time. Certainly clinically it sounds like he could have
been panic attack although difficult to exclude dysrhythmia. Stable for discharge will refer to follow-up as an outpatient. All questions answered.
Acute Exacerbation and/or Progression of Chronic Illness: HTN
*Pulse Oximetry
SaO2: 99
Oxygen Mode of Delivery: Room air
Patient hypoxic: no (99%)
*EKG
Interpreted by ED Provider?: Yes
Comparison EKG: no changes
Heart Rate: 49
Rate: bradycardiac
Rhythm: sinus
[place]: normal axis
Interval: normal interval
QRS Pattern: normal QRS
Ischemia: no ischemia
*Critical Care Note
Total Time (30-74mins, 75-104mins- exclusive of procedures): Not Applicable
Data Reviewed
Review of Other/Old Records Reveals: Labs, Records and Radiology Studies
Source: patient and records
ED Attending Note
-
Portions of this chart may have been created with voice recognition software.� Occasional wrong word or��sound alike� substitutions may have occurred due to the inherent limitations of voice recognition software.
Discharge Plan
Departure
Patient with high blood pressure during this ER visit?: Yes
Discharge Problem:
Chest pain
Instructions: Chest Pain [facility] Follow Up
Prescriptions:
No Action
No Current Medications
0
Referrals:
Jesús Zhu MD [Active, Cardiology] - Follow up in 1 week
Luc Flores DO [Family Provider, Family Practice]
Activity Restrictions/Additional Instructions:
Thank you for visiting the Emergency Department at [facility].
1. Please schedule a follow up appointment as directed. Call first thing tomorrow morning to make an appointment.
2. If indicated, please take your medications as instructed and indicated on discharge paperwork.
3. If any of your symptoms do not improve, or persist, or become more severe within 6-12 hours, please return to the emergency department for further care.
4. Please return to the emergency department if you develop a headache, neck pain/stiffness, fever greater than 100.4F, chest pain, shortness of breath, persistent nausea, vomiting, slurred speech, difficulty walking, numbness/tingling, weakness,
signs of infection or any other symptoms that are worrisome to you.
Please call [phone] if you have any questions.
Interventions
Interventions:
*Risk Screen - Suicide Last Done: 08/16/24 03:43
*General Assessment Last Done: 08/16/24 03:43
*Neglect/Abuse Screening Last Done: 08/16/24 03:43
*ED- Fall Risk Assessment Last Done: 08/16/24 03:43
ED- Cardiac Assessment Last Done: 08/16/24 04:46
Discharge Date and Time
Print Language: URDU
[2024-08-16 06:38] VITALS: BP 123/73
== END 2024-08-16 06:40 | disposition home or self-care (01) ==
LOC: EMR 03:40
PROVIDERS: EMERGENCY PHYSICIAN Emergency Medicine; FAMILY PHYSICIAN Family Medicine Sports Medicine
DX: R07.9 Chest pain, unspecified (principal); K21.9 Gastro-esophageal reflux disease without esophagitis; I10 Essential (primary) hypertension; R00.1 Bradycardia, unspecified
CPT/HCPCS: 99284; 80053; 84484; 85025; 93005

== ENCOUNTER → 2024-11-24 07:46 | Outpatient (REF) | payer BC, OTHER, SELFPAY | LOC: RCS 07:46 | PROVIDERS: ATTENDING PHYSICIAN Physician Assistant Medical; FAMILY PHYSICIAN Family Medicine Sports Medicine | DX: R00.2 Palpitations (principal); R07.9 Chest pain, unspecified | CPT/HCPCS: 93017 ==